=== PATIENT | male | born 1945 | race Caucasian/White ===

== ENCOUNTER → 2017-09-11 | Day surgery (SDC) | payer MEDICARE, BC ==
[~2017-09-11] MED LIST: ATROPINE SULFATE 1% OPHT SOLN 2 ML BTL ONE; DEXAMETHASONE SOD PHOS 4 MG/ML VIAL ONE; EPINEPHrine HCL (1:1000) 1 MG/ML VIAL ONE; FLURBIPROFEN 0.03% OPHT SOLN 2.5 ML BTL ONE; HYALURONIDASE/LIDOCAINE/BUPIVACAINE 5 ML SYR ONE; LACTATED RINGER'S 1000 ML INJ 1,000 ML ONE; NEOMYCIN/POLYMYXIN/DEXAMETHASONE OPTH OINT 3.5 GM TUBE ONE; ONDANSETRON HCL 4 MG/2 ML VIAL IV PUSH ONE; PHENYLEPHRINE HCL 2.5 % OPTH SOLN 15 ML BTL ONE; PROPOFOL 200 MG/20 ML AMP IV ONE; TETRACAINE 0.5% OPTH SOLN 15 ML BTL ONE; TROPICAMIDE 1% OPHT SOLN 15 ML BTL ONE; ceFAZolin INJ 1,000 MG VIAL ONE
--- NOTE | 2017-09-15 10:47 | MP ---
cc: Jasvir Hennessy MD DATE OF OPERATION: 09/11/2017 PREOPERATIVE DIAGNOSIS: Retinal detachment and epiretinal membrane, left eye. POSTOPERATIVE DIAGNOSIS: Retinal detachment and epiretinal membrane, left eye. PROCEDURE PERFORMED: Pars plana vitrectomy, membrane peeling, endolaser gas fluid exchange, all left eye. ANESTHESIA: MAC. SURGEON: Jasvir Hennessy MD COMPLICATIONS: None. DESCRIPTION OF PROCEDURE: After informed consent was obtained, the patient was given retrobulbar anesthesia. He was then brought to the operating room and prepared and draped in the usual sterile fashion. A wire lid speculum was placed in the patient's left eye. 23-gauge vitrectomy cannulas were then placed in the lower temporal, superotemporal and supranasal quadrants 3 mm posterior to the corneoscleral limbus. An infusion cannula was placed lower temporally. Core vitrectomy was then performed. There was already a posterior vitreous detachment. A vitrectomy was carried out as far as possible to the vitreous base taking care to remove vitreous from around the retinal break. A complete air-fluid exchange was then performed through a posterior retinotomy. The retina flattened nicely. Endolaser was used to treat the retinal breaks as well as the vitreous base for 360 degrees and the retinotomy. The air was then exchanged for a 16% C3F8. The three vitrectomy cannulas were then removed. Subconjunctival injections of dexamethasone and Ancef were placed. An Atropine drop, Maxitrol and a patch and shield were then applied. The patient tolerated the procedure well. There were no complications. He will position appropriately over the next week. He will follow up tomorrow. ADDENDUM: The patient had a moderately dense epiretinal membrane on the surface of the macula, which was carefully peeled off and removed. He will followup tomorrow in our [place] office. Jasvir Hennessy MD TAB/TL , 09:05 AM , 10:45 AM
== END | disposition home or self-care (01) ==
LOC: ESDC 14:21
PROVIDERS: ATTEND Ophthalmology Retina Specialist
DX: H33.012 Retinal detachment with single break, left eye (principal); H35.372 Puckering of macula, left eye
CPT/HCPCS: 00145; 67113; J0171; J0690; J1100; J2405; J3010; J7120